=== PATIENT | male | born 1950 | race Caucasian/White ===

== ENCOUNTER 2016-09-22 16:59 | Observation (INO) | payer MEDICARE, OTHER ==
[~2016-09-22] VITALS: Ht 172.7 cm; Wt 127.8 kg
--- NOTE | ~2016-09-22 | ESTC ---
Cardiac Perfusion Imaging Demographics Patient Name SY DAWSON Gender Male R Patient Number [id number] Race Visit Number [id number] Ethnicity Corporate ID Room Number G6315 Accession Number [id number] Height 68 inches Date of 1950 Weight 281 pounds Deyanira Suresh MD Interpreting TAYLOR - Manfred Date of study 09/23/2016 Physician Karan Mcmillan Supervising /OXANA BINGHAM Technologist Glory Mcmillan Ordering Physician Karan Mckeon RD, Deyanira surgical instrument technician RVT Stress ECG Reading Karan Nurse Fredrick Esteves Physician Deyanira The procedure was explained in detail to the patient. Risks, complications and alternative treatments were reviewed. Written consent was obtained. Medications Reviewed with Patient prior to Procedure. Procedure Procedure Type: Nuclear Stress Test:Pharmacological, Lexiscan, Cardiolite Stress Test Procedure Start time: 09/23/2016 10:15 Indications: Chest pain. Risk Factors The patient risk factors include:prior CABG on 03/26/2003;obesity, former tobacco use, treated hypertension, family history of premature CAD, orally-treated diabetes mellitus and chronic lung disease. Conclusions Summary Perfusion Images: The overall quality of the study is fair, due to gastrointestinal tracer uptake. Left ventricular cavity is noted to be normal on the stress and rest studies. TID ratio i 1.02. There is no evidence of abnormal lung activity. The right ventricle is not visualized and cannot be assessed. Stress SPECT images demonstrate homogenous tracer distribution throughout the myocardium except for small size mild decrease uptake in the area involving the basal inferior wall worse on rest images with preserved wall motion is likely due to soft tissue attenuation. Gated SPECT imaging reveals normal myocardial thickening and wall motion. The left ventricular ejection fraction was calculated to be 70%. Impression ECG portion of stress test is clinically negative for ischemia by diagnostic criteria. Myocardial perfusion imaging is probably normal. The inferior wall defect worse on rest images with preserved wall motion is likely due to soft tissue attenuation. Overall left ventricular systolic function was normal without regional wall motion abnormalities. Stress Protocols Resting ECG Normal sinus rhythm. Resting HR:85 bpm Resting BP:132/63 mmHg Pre-stress physical exam: Patient assessed by Dr Sofia prior to testing. Predicted HR: 152 bpm ECG Findings No ECG changes suggestive of ischemia. Arrhythmias No rhythm abnormality. Symptoms No symptoms with Lexiscan infusion. Stress Interpretation ECG portion of stress test is negative for ischemia by diagnostic criteria. Nuclear images are pending Imaging Results Applied corrections - Motion correction applied High risk findings Summed scores - Summed stress score: 6 - Summed rest score: 9 - Summed difference score: -3 Stress ejection Ejection fraction:70 % EDV :125 ml ESV :37 ml Stroke volume :88 ml LV mass :150 gr Imaging Protocols Rest Stress Isotope:Tc99m Sestamibi IV Isotope: Tc99m Sestamibi IV Isotope dose:15.9 mCi Isotope dose:49.5 mCi Date:09/23/2016 09:01 Date:09/23/2016 10:53 Technique: SPECT Technique: Gated Supine SPECT Supine IV remains in place after procedure. Scan Time:45-60 minutes post Scan Time:45-60 minutes post injection injection Procedure Medications - Regadenoson (Lexiscan) 0.4 mg IV over 10-15 sec. I.V. . Medical History Admission Data Admission date: 09/22/2016 Admission Time: 18:28 Hospital Status: Inpatient. Signatures dtt: DEYANIRA SOFIA dtd: 09/23/16 1015 Physician Self Edit
--- NOTE | ~2016-09-22 | HP ---
PATIENT'S NAME: EUNICE DAN [facility] AGE: 66 Y [address] ROOM: [place] [address] LOCATION: GPCU ADMIT DATE: 09/22/2016 History & Physical DISCHARGE DATE: FAMILY PHYSICIAN: PHYSICIAN, UNKNOWN ATTENDING PHYSICIAN: ROSHNI MAKI DATE OF SERVICE: CHIEF COMPLAINT: Chest pain. HISTORY OF PRESENTING ILLNESS: This 66-year-old white male with known history of coronary artery disease, status post coronary artery bypass grafting, came to the emergency department this evening with substernal chest pain, which began earlier today. He describes heaviness in his chest feeling as though "an elephant is sitting" over his sternum. States it lasted for nearly an hour. He did self administer some nitroglycerine, and the pain had essentially subsided by the time he got to the emergency room. He states he has had similar pain in the past and he quotes it to anginal symptoms, which he has had with coronary disease. He has been otherwise well. He did have some congestion and cough about a week ago, but that has subsided. He denies fevers, chills, or sweats. He denies headaches. He was a little dizzy earlier, but that has gone now. Denies abdominal pain. He has been eating and drinking normally. He stools and voids normally. Denies numbness or tingling in his extremities or any associated physical constitutional complaints. PAST MEDICAL HISTORY: Allergies: Cipro. ILLNESSES: 1. Coronary artery disease, status post coronary artery bypass grafting x4 in 2003. 2. Essential hypertension. 3. Insulin-dependent diabetes mellitus type 2. 4. Hypertension. 5. Obstructive sleep apnea. 6. COPD. 7. Depression. 8. BPH. 9. Overactive bladder. PATIENT'S NAME: EUNICE DAN [facility] AGE: 66 Y [address] ROOM: [address] [address] LOCATION: GPCU ADMIT DATE: 09/22/2016 History & Physical DISCHARGE DATE: FAMILY PHYSICIAN: PHYSICIAN, UNKNOWN ATTENDING PHYSICIAN: ROSHNI MAKI CURRENT MEDICATIONS: 1. Albuterol HFA 2 puffs p.o. q.4 hours p.r.n. 2. Amlodipine 10 mg p.o. daily. 3. Aspirin 81 mg p.o. at bedtime. 4. Symbicort 160/4.5 one puff p.o. b.i.d. 5. Carvedilol 3.125 p.o. b.i.d. 6. Vitamin D3, 2000 units p.o. q.a.m. 7. Lexapro 10 mg p.o. daily. 8. Trilipix 135 mg p.o. at bedtime. 9. Proscar 5 mg p.o. at bedtime. 10. HCTZ 25 mg p.o. q.a.m. 11. Humulin R 500 40 units subcutaneous q.a.m. and 17 units subcu at bedtime. 12. Xalatan ophthalmic drops one drop each eye at HS. 13. Cozaar 50 mg p.o. at bedtime. 14. Metformin 500 mg p.o. b.i.d. 15. Myrbetriq 50 mg p.o. at bedtime. 16. Multivitamin daily. 17. Nitroglycerin spray p.r.n. 18. Pred Forte 1% ophthalmic drops 1 drop each eye at bedtime. 19. Flomax 0.4 mg p.o. daily. 20. Detrol LA 4 mg p.o. daily. 21. CoQ10, 30 mg p.o. q.a.m. FAMILY HISTORY: Significant for heart disease in both his mother and father. Mother had congestive heart failure. He had a brother, who from lung cancer and a sister who at age 41 with a brain aneurysm. SOCIAL HISTORY: He is and lives in [place]. He is retired [employer]. He does have a significant history of smoking tobacco, 70-90 pack years, but has been quit since 2003. He also has a significant history of heavy alcohol use, but currently drinks only occasionally. REVIEW OF SYSTEMS: As per HPI. All other organ systems reviewed and are negative. OBJECTIVE: VITAL SIGNS: Temperature 97.5, pulse 94, respirations 20, blood pressure 108/56, O2 saturation 91% on room air. GENERAL: He is very pleasant, cooperative, lying in bed, in no acute distress. SKIN: Supple, pink, warm, and dry. There are no obvious rashes. HEENT: Otherwise, normocephalic. Sclerae nonicteric. Pupils are equal, PATIENT'S NAME: EUNICE DAN [facility] AGE: 66 Y [address] ROOM: G[address] [place], [place] [address] LOCATION: [facility] ADMIT DATE: 09/22/2016 History & Physical DISCHARGE DATE: FAMILY PHYSICIAN: PHYSICIAN, UNKNOWN ATTENDING PHYSICIAN: ROSHNI MAKI, and reactive to light and accommodation. Extraocular movements appear intact. Nasal turbinates normal in appearance. Oropharynx clear. Mucous membranes are pink and moist. NECK: Supple. Plethoric and obese. No masses or adenopathy. No thyromegaly. No JVD. CHEST: Wall is symmetrical. HEART: Regular without murmurs. LUNGS: Diminished at the bases. No crackles or wheezes are heard. ABDOMEN: Soft, nontender. Bowel sounds present. No masses. No hepatosplenomegaly. : Not done. RECTAL: Not done. EXTREMITIES: Display trace pitting edema. No cyanosis. NEUROLOGIC: Anxious, but no focal deficits. LABORATORY AND X-RAY DATA: A 12-lead EKG shows normal sinus rhythm. There is an incomplete right bundle branch block and nonspecific ST-T wave abnormalities. CBC showed a white blood cell count elevated at 12.4, hemoglobin is 15.1, hematocrit 42.1, platelets 215. Chemistries revealed a BUN and creatinine 26 and 2.1 respectively. Sodium and potassium of 136 and 4.1, chloride and CO2 are 104 and 23, calcium is 8.9. AST, ALT 41 and 53 respectively, bilirubin is 0.7, magnesium was 2.1, glucose is elevated at 157. PT/PTT 11.8 and 26 respectively with an INR of 1.12. Cardiac enzymes revealed a CPK of 368. CK- MB 1.9 and troponin I of less than 0.04. ProBNP was 96. ASSESSMENT AND PLAN: 1. Chest pain. The patient describes pain consistent with his anginal equivalent as described above. He has known coronary artery disease and his KARIME risk score is 5. We will admit for observation. We will heparinize him. He will receive beta-louis therapy, angiotensin receptor louis therapy, and statin therapy. He has already been seen and evaluated by Cardiology. We will trend his cardiac enzymes over the course of the night and monitor on telemetry. Tentatively, we will plan for nuclear stress testing tomorrow. 2. Acute kidney injury with chronic kidney disease. We will hydrate him gently. I am unsure what his baseline creatinine is. We will follow this serially and watch his fluid volume balance closely. If he requires cardiac catheterization may need to consider a formal Nephrology consultation. 3. Coronary artery disease, status post coronary artery bypass grafting. Otherwise, clinically stable. His initial set of enzymes are reassuring. We will trend cardiac enzymes. Continue aspirin, beta-louis therapy, and ARB therapy. We will add statin therapy as already requested by Cardiology. PATIENT'S NAME: EUNICE DAN [facility] AGE: 66 Y [address] ROOM: [place] [address] LOCATION: GPCU ADMIT DATE: 09/22/2016 History & Physical DISCHARGE DATE: FAMILY PHYSICIAN: PHYSICIAN, UNKNOWN ATTENDING PHYSICIAN: ROSHNI MAKI 4. Insulin-dependent diabetes mellitus. We will manage with Accu-Cheks and sliding scale insulin while he is inpatient. He utilizes concentrated insulin at home, but we will utilize NovoLog while he is here. 5. Essential hypertension. Appears to be adequately controlled. We will monitor the trend. 6. Obstructive sleep apnea. Continue with CPAP at bedtime. Encourage good pulmonary hygiene. 7. Chronic hypoxic hypercapnic respiratory failure with chronic obstructive pulmonary disease. Encourage good pulmonary hygiene and continue with bronchodilator therapy as above. 8. Morbid obesity. We will need to work on some long-term strategies for weight loss including calorie reduction, increased exercise, etc. 9. Deep venous thrombosis prophylaxis. He is going to be fully heparinized. MD DELANO WALKER/modl /[id number] D: 225 T: 709 HISTORY & PHYSICAL
--- NOTE | ~2016-09-22 | CON ---
PATIENT'S NAME: EUNICE DAN [facility] AGE: 66 Y [address] ROOM: [place] [id number] LOCATION: GPCU ADMIT DATE: 09/22/2016 Consultation DISCHARGE DATE: FAMILY PHYSICIAN: PHYSICIAN, UNKNOWN ATTENDING PHYSICIAN: ROSHNI TREVINO DATE OF CONSULTATION: 09/22/2016 REFERRING PHYSICIAN: KARI BARNEY MD REFERRING PHYSICIAN: Dr. Roshni Trevino. REASON FOR CONSULT: Chest pain, coronary artery disease. HISTORY OF PRESENT ILLNESS: Mr. Dan is a pleasant 66-year-old male with history of coronary artery disease, status post 4-vessel coronary artery bypass graft in 2003. The patient stated that he is physically not very active and can walk up to 2 blocks. He had been camping locally and today he developed chest pain. The pain was like a dull ache. It lasted for about half an hour. It was relieved following 2 sublingual nitroglycerin. He denied any recurrence of chest pain. He has chronic mild shortness of breath. Denied any worsening of shortness of breath today. He was brought to the emergency room and was subsequently admitted for further management. REVIEW OF SYSTEMS: The patient stated that he had recent cataract surgery on the right eye. Has mild diminution in vision. No history of nausea or vomiting. History of diarrhea is present. The patient stated that he has 2 to 6 bowel movements a day. No history of constipation. No history of fever. No history of cough or expectoration. No history of urinary symptoms. Review of other systems is essentially negative. PAST MEDICAL HISTORY: Diabetes mellitus, coronary artery disease, status post 4-vessel CABG. FAMILY HISTORY: His mother has congestive heart failure and his father of heart attack. SOCIAL HISTORY: Patient is . CURRENT MEDICATIONS: His current cardiac medications include: PATIENT'S NAME: EUNICE DAN [facility] AGE: 66 Y [address] ROOM: [address] [place] [id number] LOCATION: GPCU ADMIT DATE: 09/22/2016 Consultation DISCHARGE DATE: FAMILY PHYSICIAN: PHYSICIAN, UNKNOWN ATTENDING PHYSICIAN: ROSHNI TREVINO 1. Carvedilol 3.125 b.i.d. 2. Amlodipine 10 mg daily. 3. Aspirin 81 mg daily. 4. Nitro Dyess p.r.n. 5. Losartan 50 mg daily. 6. Hydrochlorothiazide 25 mg daily. 7. Simvastatin 20 mg daily. Patient is also on: 1. Humulin insulin. 2. Metformin. PHYSICAL EXAMINATION: GENERAL: On examination, patient is awake, alert, and oriented, and in no distress. VITAL SIGNS: His pulse rate is 77 beats per minute, blood pressure is 108/56, temperature 98.5, oxygen saturation 91% on room air. HEENT: His head is atraumatic and normocephalic. Oral mucosa is moist. NECK: No significant jugular venous distention is present. CARDIOVASCULAR: S1, S2 are audible. They are regular in rate and rhythm. No audible murmur is present. RESPIRATORY: Bilateral vesicular breath sounds are audible with no adventitious sounds. ABDOMEN: Abdomen is distended. Soft, nontender. Bowel sounds are present. EXTREMITIES: Showed no significant pedal edema. SKIN: Skin is warm and dry. NEUROLOGIC: No focal neurological deficits were noted. Patient is able to move all 4 extremities. PSYCHIATRIC: The patient is awake, alert, and oriented. LABORATORY DATA: White blood cell count 12.4, hemoglobin 15.1, hematocrit 42.1, platelet count 215. Sodium 136, potassium 4.1, chloride 104, CO2 of 23, glucose 157, BUN 26, creatinine 2.1. Estimated GFR 32. Magnesium 2.1. CPK 368, CK-MB 1.9, troponin less than 0.04, proBNP 96. His EKG showed sinus rhythm at 95 beats per minute, old inferior infarct, and possible anterior infarct. ASSESSMENT: 1. Coronary artery disease, status post coronary artery bypass graft. 2. Chest pain. 3. Diabetes mellitus. 4. Hypertension. 5. Hyperlipidemia. 6. Obesity. 7. Chronic kidney disease. PATIENT'S NAME: EUNICE DAN [facility] AGE: 66 Y [address] ROOM: [address] [address] [facility] ADMIT DATE: 09/22/2016 Consultation DISCHARGE DATE: FAMILY PHYSICIAN: PHYSICIAN, UNKNOWN ATTENDING PHYSICIAN: ROSHNI TREVINO PLAN: We will continue medical therapy for coronary artery disease with aspirin, beta-blockers, and statins. We will admit patient to telemetry. Check serial cardiac isoenzymes and EKGs. We will treat patient with anticoagulation with heparin, and if serial cardiac isoenzymes are negative, we will discontinue heparin. If cardiac enzymes are negative, we will consider stress test in a.m. If patient has recurrent chest pains or if cardiac enzymes are significantly elevated, we will consider catheterization. In view of diabetes and chronic kidney disease, patient is at higher risk for contrast-induced nephropathy. We will also start patient on oral nitrates. The plan of care was discussed with the patient and his . Thank you for allowing us in taking part in the care of this patient. MD KITA RASCON/vicente /[id number] d: 09/23/16 0152 t: 09/28/16 [facility], CONSULTATION REPORT
--- NOTE | ~2016-09-22 | DS ---
PATIENT'S NAME: EUNICE DAN [facility] AGE: 66 Y [address] ROOM: [address] [place], [place] [address] LOCATION: GPCU ADMIT DATE: 09/22/2016 Discharge Summary DISCHARGE DATE: 09/23/2016 FAMILY PHYSICIAN: Physician, Unknown ATTENDING PHYSICIAN: Demetrice Trevino FINAL DIAGNOSES: 1. Chest pain. 2. Known coronary disease, status post bypass. 3. Acute kidney injury on stage 3 chronic kidney disease. 4. Diabetes mellitus, insulin using. 5. Essential hypertension. 6. Obstructive sleep apnea, on CPAP. 7. Chronic hypoxic hypercapnic respiratory failure. HISTORY OF PRESENT ILLNESS: Please see the history and physical dictated by Dr. Rogelio Hernandez. In short, the patient presented with chest pain, which felt like pressure. He had taken a sublingual nitroglycerin prior to arriving to the ER. In the ER, EKG and initial enzymes were negative. LABORATORY DATA: Sodium was 136 on admission and 136 at discharge, potassium on admission was 4.1, chloride was 104, CO2 was 23, BUN on admission was 26, and creatinine was 2.1; creatinine on the day of discharge was 1.7. Liver enzymes were normal except for an AST of 41. Cholesterol was 124, triglycerides were 174, HDL was 40, and LDL was 50. Troponins, four of them were less than 0.04. ProBNP was 96. White blood cell count on admission was 12.4, hemoglobin was 15.1, hematocrit was 42.1, and platelet count was 215. Urinalysis did not show any evidence of infection. Pro-time on admission was 11.8. INR was 1.12. DIAGNOSTIC STUDIES: Chest x-ray on admission was negative for vascular congestion or acute infiltrate. HOSPITAL COURSE: The patient was admitted under the chest pain protocol. He was placed on IV heparin. The patient was not given nitroglycerin as he was pain free on admission. He was put on sliding-scale insulin. His medications were resumed. Cardiology was consulted. Dr. Russo did see him. He did feel that it would probably be best if we proceeded with a Lexiscan stress test. The patient underwent the stress test on the morning of September 23. It did return without any evidence of provocable ischemia. There was a slight defect on the inferior wall, which was felt to be a soft tissue attenuation. It was felt that this patient was stable for discharge, and will be discharged to home during the hospital stay. The matrix worker did drop his Norvasc from 10 mg a day to 5 mg a day. He did get IV hydration, which did improve his creatinine from 2.1 to 1.7. PATIENT'S NAME: EUNICE DAN [facility] AGE: 66 Y [address] ROOM: [place] [address] LOCATION: GPCU ADMIT DATE: 09/22/2016 Discharge Summary DISCHARGE DATE: 09/23/2016 FAMILY PHYSICIAN: Physician, Unknown ATTENDING PHYSICIAN: Demetrice Trevino DISCHARGE INSTRUCTIONS: Diet: He is discharged home to follow a diabetic diet. Followup: He is to follow up with Dr. Villarreal, his primary care provider on Sunday, September 25 to have a renal panel, and see his matrix worker in seven to ten days. DISCHARGE MEDICATIONS: 1. Norvasc 5 mg daily. 2. Aspirin 81 mg at bedtime. 3. Coreg 6.25 mg twice daily. 4. Vitamin D 2000 units daily. 5. Lexapro 10 mg daily. 6. Trilipix 135 mg at bedtime. 7. Proscar 5 mg daily. 8. HydroDIURIL 25 mg daily. 9. Insulin U-500, 40 units in the morning and 17 units at night. 10. Xalatan 1 drop to both eyes at bedtime. 11. Cozaar 50 mg at bedtime. 12. Multivitamin daily. 13. Prednisolone drops for his eye, one drop to both eyes at bedtime. 14. Symbicort 160-4.5 mcg one puff twice daily as needed. 15. Flomax 0.4 mg at bedtime. 16. Nitroglycerin spray p.r.n. chest pain. 17. Detrol LA 4 mg daily. 18. Myrbetriq 50 mg at bedtime. 19. Glucophage 500 mg twice daily with meals. 20. CoQ10, 30 mg in the morning. 21. Proventil HFA two puffs every 4 hours as needed p.r.n. OVERALL PROGNOSIS AT DISCHARGE: Good. BESSIE PURI MD LAW/modl /[id number] d: 09/23/16 2352 t: 09/25/16 1509, DISCHARGE SUMMARY
[2016-09-22 17:20] LABS: BASOPHIL # 0.2 K/uL (0.0-0.2); BASOPHIL % 1.4 %; EOSINOPHIL # 0.5 K/uL (0.0-0.5); EOSINOPHIL % 4.3 %; HEMATOCRIT 42.1 % (37.0-53.0); HEMOGLOBIN 15.1 g/dL (11.0-16.0); IMMATURE GRANULOCYTE % 0.3 %; LYMPHOCYTE # 3.5 K/uL (0.8-4.0); LYMPHOCYTE % 28.3 %; MCH 30.9 pg (27.0-34.0); MCHC 35.9 gm/dL (32.0-36.5); MCV 86.3 fl (83.0-98.0); MONOCYTE # 1.4 K/uL (0.0-1.0); MPV 11.1 fl (9.4-12.4); NEUTROPHIL # (ANC) 6.8 K/uL (1.4-9.0); NEUTROPHIL % 54.7 %; NRBC % 0 /100WBC (0-0.00); PLATELET COUNT 215 K/uL (150-450); RBC 4.88 M/uL (3.50-5.50); WBC 12.4 K/uL (4.0-11.0)
[2016-09-22 17:29] LABS: INR - (THERAPEUTIC) 1.12 (0.92-1.07); PROTIME 11.8 SECONDS (9.8-11.4); PTT 26 SECONDS (25-32)
[2016-09-22 17:40] LABS: ALK PHOS 91 IU/L (33-138); ALT 53 IU/L (12-78); ANION GAP 13.1 (10.0-19.0); AST 41 IU/L (10-40); BLOOD UREA NITROGEN 26 mg/dL (6-24); CALCIUM 8.9 mg/dL (8.5-10.5); CHLORIDE 104 mMol/L (96-110); CO2 23 mMol/L (22-32); CPK 368 IU/L (35-332); CREATININE 2.1 mg/dL (0.6-1.3); ESTIMATED GFR (MDRD EQUATION) 32; MAGNESIUM 2.1 mg/dL (1.8-2.6); POTASSIUM 4.1 mMol/L (3.7-5.1); SODIUM 136 mMol/L (135-145); TOTAL BILIRUBIN 0.7 mg/dL (0.0-1.5); TOTAL PROTEIN 7.5 g/dL (6.0-8.4)
[2016-09-22] MEDS ORDERED: HUMULIN R500 UNIT/M SUB-Q ×2 (19:50→19:51)
[2016-09-22] MEDS ORDERED: COREG 3.1253.125 MG PO (19:52)
[2016-09-22] MEDS ORDERED: TRILIPIX135 MG PO (19:52)
[2016-09-22] MEDS ORDERED: ASPIRIN LO-DOSE81 MG PO (19:53)
[2016-09-22] MEDS ORDERED: NORVASC10 MG PO (19:53)
[2016-09-22] MEDS ORDERED: VITAMIN D-32000 UNI1 PO (19:54)
[2016-09-22] MEDS ORDERED: NITROGLYCERIN4.9 GM SL (19:54)
[2016-09-22] MEDS ORDERED: DETROL LA4 MG PO (19:55)
[2016-09-22] MEDS ORDERED: THERA-VITE W/ B1 TAB PO (19:56)
[2016-09-22] MEDS ORDERED: SYMBICORT 16010.2 GM INH (19:57)
[2016-09-22] MEDS ORDERED: MYRBETRIQ50 MG PO (19:57)
[2016-09-22] MEDS ORDERED: GLUCOPHAGE500 MG PO (19:58)
[2016-09-22] MEDS ORDERED: COZAAR50 MG PO (19:58)
[2016-09-22] MEDS ORDERED: HYDRODIURIL25 MG PO (19:59)
[2016-09-22] MEDS ORDERED: LEXAPRO10 MG PO (19:59)
[2016-09-22] MEDS ORDERED: PROSCAR5 MG PO (20:00)
[2016-09-22] MEDS ORDERED: CO Q-1030 MG PO (20:00)
[2016-09-22] MEDS ORDERED: PROVENTIL OR V6.7 GM INH (20:01)
[2016-09-22] MEDS ORDERED: FLOMAX0.4 MG PO (20:01)
[2016-09-22] MEDS ORDERED: XALATAN2.5 ML OPHTH (20:02)
[2016-09-22] MEDS ORDERED: PRED FORTE 1%5 ML OPHTH (20:04)
--- NOTE | 2016-09-23 00:03 | NUR ---
Patient arrived by cart at 1902 with transport transporting. Patient is alert and oriented and vital signs stable upon arrival. Patient was able to stand and walk to bed. Patient was admitted for complaints of chest pain. Patient has PMH of CABG, heart cath, HTN, YIMI, cataract sx, CAD, DM II, depression, and COPD. Heparin protocol was initiated and cardiology was consulted. EKG was obtained and possible stress test in AM.
[2016-09-23 00:49] LABS: CPK 315 IU/L (35-332)
--- NOTE | 2016-09-23 04:13 | NUR ---
Significant Event: Pt A&Ox3. VS stable, remains on RA while awake. Pt has hx of YIMI. Did not like CPAP for night, put on 2L nc instead. HR in 60-70's. Accuchecks ACHS, moderate scale. Pt currently NPO for stress test in AM. Plan for Lexiscan as cardiac enzymes have been negative. Pt has intermittent neuropathy dave toes. Has L) only hearing aid. Pt is up x1 assist to bathroom. PIV in L) hand, NS @ TKO; heparin gtt. Trace BLE edema. LS clear. Recently had carpal tunnel sx to R) hand, [address] Follow up: UA needed. Continue plan of care. PTT draw @ 7263
--- NOTE | 2016-09-23 05:25 | NUR ---
Significant Event: PTT was 37. 3000 unit bolus given, heparin gtt currently running at 1200 units/hr. Next PTT @ 1122; order placed. Follow up:
[2016-09-23 06:44] LABS: CPK 283 IU/L (35-332)
[2016-09-23 07:13] LABS: BILIRUBIN URINE NEGATIVE (NEGATIVE); BLOOD URINE NEGATIVE /UL (NEGATIVE); COLOR URINE YELLOW (YELLOW); GLUCOSE URINE 1000 mg/dL (NEGATIVE); KETONE URINE NEGATIVE (NEGATIVE); LEUKOCYTES URINE 25 /UL (NEGATIVE); NITRITE URINE NEGATIVE (NEGATIVE); PROTEIN URINE NEGATIVE (NEGATIVE); SPEC GRAVITY URINE 1.025 (1.003-1.035); TURBIDITY URINE CLEAR (CLEAR); UROBILINOGEN URINE NORMAL (NORMAL)
[2016-09-23 07:21] LABS: BACTERIA URINE RARE (NEGATIVE); EPITHELIAL URINE 0-2 #/HPF (NEGATIVE); RBC URINE NEGATIVE #/HPF (NEGATIVE); WBC URINE RARE #/HPF (NEGATIVE)
[2016-09-23 13:18] LABS: ANION GAP 11.9 (10.0-19.0); CREATININE 1.7 mg/dL (0.6-1.3); POTASSIUM 3.9 mMol/L (3.7-5.1)
[2016-09-23 13:20] LABS: CPK 272 IU/L (35-332)
--- NOTE | 2016-09-23 15:53 | NUR ---
PATIENT A/OX3, VSS ON ROOM AIR. PT. IS UP AD BONNIE IN ROOM. VOIDING FINE. HEPARIN DRIP D/C WHEN BACK FROM STRESS TEST. STRESS TEST NEGATIVE. IV REMOVED FROM L)HAND WITHOUT COMPLICATIONS. NO COMPLAINTS OF PAIN OR CHEST PAIN TODAY. DISMISSAL INSTRUCTIONS, MED CHANGES GONE OVER WITH PATIENT AND . PT. KNOW TO FOLLOW-UP WITH CARDIOLOGISTS IN [place] IN 7-10 DAYS AND TO GET RENAL LAB CHECK THIS WEEK WITH PCP. NO FURTHER QUESTIONS AT THIS TIME. ALL BELONGINGS SENT HOME WITH PATIENT.
== END 2016-09-23 15:35 | disposition disaster alternative care site (69) ==
LOC: GMED 16:59 → GPCU 18:28
PROVIDERS: Emergency Medicine; Family Medicine; Internal Medicine Interventional Cardiology; ADMIT Internal Medicine
DX: R07.9 Chest pain, unspecified (principal); I25.10 Atherosclerotic heart disease of native coronary artery without angina pectoris; I12.9 Hypertensive chronic kidney disease with stage 1 through stage 4 chronic kidney disease, or unspecified chronic kidney disease; E11.22 Type 2 diabetes mellitus with diabetic chronic kidney disease; N18.3 Chronic kidney disease, stage 3 (moderate); N17.9 Acute kidney failure, unspecified; J96.11 Chronic respiratory failure with hypoxia; J96.12 Chronic respiratory failure with hypercapnia; J44.9 Chronic obstructive pulmonary disease, unspecified; G47.33 Obstructive sleep apnea (adult) (pediatric); F32.9 Major depressive disorder, single episode, unspecified; E66.01 Morbid (severe) obesity due to excess calories; Z68.41 Body mass index [BMI] 40.0-44.9, adult; Z88.1 Allergy status to other antibiotic agents; Z79.899 Other long term (current) drug therapy; Z79.4 Long term (current) use of insulin; Z87.891 Personal history of nicotine dependence; Z95.1 Presence of aortocoronary bypass graft; Z98.890 Other specified postprocedural states
CPT/HCPCS: A9500; G0378; J0280; J1644; J2405; J2785; J7030